=== PATIENT | female | born 1975 | race Native Hawaiian/Other Pacific Islander ===

== ENCOUNTER 2017-05-23 10:48 | Outpatient (CLI) | payer OTHER ==
[~2017-05-23 10:48] MED LIST: ACET-689 PO; ADDERALL30 MG PO; CLARITIN10 M1 PO; GLIM2TAB PO; SYNTHROID175 MCG PO
== END 2017-05-23 12:00 | disposition home or self-care (01) ==
LOC: LABW 10:48
DX: E11.9 Type 2 diabetes mellitus without complications (principal); E55.9 Vitamin D deficiency, unspecified
CPT/HCPCS: 36415; 82043; 82306; 82570; 83036

== ENCOUNTER 2017-05-24 10:39 | Outpatient (CLI) | payer OTHER | END 2017-05-24 19:07 | disposition home or self-care (01) | LOC: MAMMO 10:39 | DX: Z12.31 Encounter for screening mammogram for malignant neoplasm of breast (principal) | CPT/HCPCS: G0202-TC ==

== ENCOUNTER 2017-07-31 14:13 | Outpatient (CLI) | payer OTHER ==
[2017-07-31 14:34] LABS: PLATELET COUNT 217 K/uL (152-353)
[2017-07-31 14:52] LABS: POTASSIUM 3.7 mmol/L (3.6-5.2); SODIUM 132 mmol/L (136-145)
== END 2017-07-31 15:15 | disposition home or self-care (01) ==
LOC: LABW 14:13
PROVIDERS: Family Medicine
DX: R10.11 Right upper quadrant pain (principal)
CPT/HCPCS: 36415; 80053; 82150; 83690; 85027

== ENCOUNTER 2017-10-04 09:04 | Outpatient (CLI) | payer OTHER | END 2017-10-04 18:58 | disposition home or self-care (01) | LOC: CT 09:04 | DX: K86.2 Cyst of pancreas (principal) | CPT/HCPCS: 36415; 82565; 84520; Q9963 ==

== ENCOUNTER 2018-07-07 13:26 | Outpatient (CLI) | payer OTHER ==
[2018-07-07 13:42] LABS: PLATELET COUNT 237 K/uL (152-353)
[2018-07-07 13:47] LABS: POTASSIUM 3.9 mmol/L (3.6-5.2)
== END 2018-07-07 21:17 | disposition home or self-care (01) ==
LOC: LABW 13:26
PROVIDERS: Nurse Practitioner Family
DX: R10.12 Left upper quadrant pain (principal); R07.89 Other chest pain
CPT/HCPCS: 36415; 80053; 82150; 82550; 83690; 84484; 85027; 93005

== ENCOUNTER 2018-09-19 10:13 | Outpatient (CLI) | payer OTHER | END 2018-09-19 19:27 | disposition home or self-care (01) | LOC: MAMMO 10:13 | DX: Z12.31 Encounter for screening mammogram for malignant neoplasm of breast (principal) ==

== ENCOUNTER 2019-06-24 09:16 | Outpatient (CLI) | payer OTHER | END 2019-06-24 22:15 | disposition home or self-care (01) | LOC: LABW 09:16 | DX: E13.65 Other specified diabetes mellitus with hyperglycemia (principal); E03.8 Other specified hypothyroidism; K86.2 Cyst of pancreas | CPT/HCPCS: 36415; 82150; 83036; 83690; 84443 ==

== ENCOUNTER 2019-07-01 08:10 | Outpatient (CLI) | payer OTHER | END 2019-07-01 23:43 | disposition home or self-care (01) | LOC: CT 08:10 | DX: K86.2 Cyst of pancreas (principal) | CPT/HCPCS: 82565; 84520; Q9963 ==

== ENCOUNTER 2019-07-07 08:39 | Outpatient (CLI) | payer OTHER | END 2019-07-07 20:57 | disposition home or self-care (01) | LOC: MRI 08:39 | DX: K86.2 Cyst of pancreas (principal) | CPT/HCPCS: A9576 ==

== ENCOUNTER 2019-10-02 10:12 | Outpatient (CLI) | payer OTHER | END 2019-10-02 22:16 | disposition home or self-care (01) | LOC: MAMMO 10:12 | DX: Z12.31 Encounter for screening mammogram for malignant neoplasm of breast (principal) ==

== ENCOUNTER 2019-10-16 14:07 | Outpatient (CLI) | payer OTHER | END 2019-10-16 19:29 | disposition home or self-care (01) | LOC: LABW 14:07 | DX: E03.9 Hypothyroidism, unspecified (principal) | CPT/HCPCS: 36415; 84436; 84443; 84480 ==

== ENCOUNTER 2020-01-26 08:16 | Outpatient (CLI) | payer OTHER ==
[2020-01-26 08:45] LABS: PLATELET COUNT 218 K/uL (152-353)
== END 2020-01-26 19:34 | disposition home or self-care (01) ==
LOC: LABW 08:16
PROVIDERS: Family Medicine
DX: E03.8 Other specified hypothyroidism (principal); Z13.220 Encounter for screening for lipoid disorders; E55.9 Vitamin D deficiency, unspecified; E53.8 Deficiency of other specified B group vitamins; I10 Essential (primary) hypertension; E13.65 Other specified diabetes mellitus with hyperglycemia
CPT/HCPCS: 36415; 80053; 80061; 82306; 82607; 83036; 84439; 84443; 85027

== ENCOUNTER 2020-09-26 10:17 | Outpatient (CLI) | payer OTHER ==
[2020-09-26 11:05] LABS: PLATELET COUNT 201 K/uL (152-353)
[2020-09-26 11:16] LABS: POTASSIUM 3.3 mmol/L (3.6-5.2)
== END 2020-09-26 23:24 | disposition home or self-care (01) ==
LOC: LABW 10:17
PROVIDERS: Family Medicine
DX: Z00.01 Encounter for general adult medical examination with abnormal findings (principal); K86.3 Pseudocyst of pancreas
CPT/HCPCS: 36415; 80053; 82150; 83690; 84436; 84443; 84481; 85027; 93005

== ENCOUNTER 2020-09-27 14:39 | Outpatient (CLI) | payer OTHER | END 2020-09-27 23:38 | disposition home or self-care (01) | LOC: LAB 14:39 | DX: E13.65 Other specified diabetes mellitus with hyperglycemia (principal) | CPT/HCPCS: 83036 ==

== ENCOUNTER 2020-10-12 09:12 | Outpatient (CLI) | payer OTHER | END 2020-10-12 20:42 | disposition home or self-care (01) | LOC: MRI 09:12 | PROVIDERS: ATTEND Family Medicine | DX: Z00.01 Encounter for general adult medical examination with abnormal findings (principal); K86.3 Pseudocyst of pancreas; Z12.31 Encounter for screening mammogram for malignant neoplasm of breast | CPT/HCPCS: A9576 ==

== ENCOUNTER 2020-12-28 13:53 | Outpatient (CLI) | payer OTHER ==
[2020-12-28 14:27] LABS: PLATELET COUNT 244 K/uL (152-353)
[2020-12-28 14:38] LABS: POTASSIUM 3.8 mmol/L (3.6-5.2)
== END 2020-12-28 21:58 | disposition home or self-care (01) ==
LOC: LABW 13:53
PROVIDERS: ATTEND Nurse Practitioner Family
DX: I10 Essential (primary) hypertension (principal); E13.65 Other specified diabetes mellitus with hyperglycemia; E53.8 Deficiency of other specified B group vitamins; E55.9 Vitamin D deficiency, unspecified
CPT/HCPCS: 36415; 80053; 82306; 82607; 83036; 85027

== ENCOUNTER 2021-04-07 10:57 | Outpatient (CLI) | payer OTHER ==
[2021-04-07 11:15] LABS: PLATELET COUNT 221 K/uL (152-353)
[2021-04-07 11:30] LABS: POTASSIUM 4.3 mmol/L (3.6-5.2)
== END 2021-04-07 22:41 | disposition home or self-care (01) ==
LOC: LABW 10:57
PROVIDERS: ATTEND Nurse Practitioner Family
DX: I10 Essential (primary) hypertension (principal); E13.65 Other specified diabetes mellitus with hyperglycemia
CPT/HCPCS: 36415; 80053; 83036; 85027

== ENCOUNTER 2021-04-13 08:14 | Outpatient (CLI) | payer OTHER ==
[~2021-04-13] VITALS: Ht 167.6 cm; Wt 88.0 kg
== END 2021-04-13 21:42 | disposition home or self-care (01) ==
LOC: DIABINF 08:14
PROVIDERS: ATTEND Internal Medicine Endocrinology, Diabetes & Metabolism
DX: E11.65 Type 2 diabetes mellitus with hyperglycemia (principal); I10 Essential (primary) hypertension; E78.2 Mixed hyperlipidemia; E55.9 Vitamin D deficiency, unspecified; E03.8 Other specified hypothyroidism; E66.8 Other obesity; Z68.39 Body mass index [BMI] 39.0-39.9, adult
CPT/HCPCS: 82948; 96365; 96366; 96521; J1815; J1817

== ENCOUNTER 2021-04-14 08:16 | Outpatient (CLI) | payer OTHER ==
[~2021-04-14] VITALS: Ht 167.6 cm; Wt 88.0 kg
== END 2021-04-14 22:16 | disposition home or self-care (01) ==
LOC: DIABINF 08:16
PROVIDERS: ATTEND Internal Medicine Endocrinology, Diabetes & Metabolism
DX: E11.65 Type 2 diabetes mellitus with hyperglycemia (principal); I10 Essential (primary) hypertension; E78.2 Mixed hyperlipidemia; E55.9 Vitamin D deficiency, unspecified; E03.8 Other specified hypothyroidism; E66.8 Other obesity; Z68.39 Body mass index [BMI] 39.0-39.9, adult
CPT/HCPCS: 82948; 96365; 96366; 96521; J1815; J1817

== ENCOUNTER 2021-04-20 08:10 | Outpatient (CLI) | payer OTHER ==
[~2021-04-20] VITALS: Ht 167.6 cm; Wt 88.0 kg
== END 2021-04-20 22:02 | disposition home or self-care (01) ==
LOC: DIABINF 08:10
PROVIDERS: ATTEND Internal Medicine Endocrinology, Diabetes & Metabolism
DX: E11.65 Type 2 diabetes mellitus with hyperglycemia (principal); I10 Essential (primary) hypertension; E78.2 Mixed hyperlipidemia; E55.9 Vitamin D deficiency, unspecified; E03.8 Other specified hypothyroidism; E66.8 Other obesity; Z68.31 Body mass index [BMI] 31.0-31.9, adult; K86.3 Pseudocyst of pancreas
CPT/HCPCS: 82948; 96365; 96366; 96521; J1815; J1817

== ENCOUNTER 2021-04-21 08:22 | Outpatient (CLI) | payer OTHER ==
[~2021-04-21] VITALS: Ht 167.6 cm; Wt 88.0 kg
== END 2021-04-21 22:44 | disposition home or self-care (01) ==
LOC: DIABINF 08:22
PROVIDERS: ATTEND Internal Medicine Endocrinology, Diabetes & Metabolism
DX: E11.65 Type 2 diabetes mellitus with hyperglycemia (principal); I10 Essential (primary) hypertension; E78.2 Mixed hyperlipidemia; E55.9 Vitamin D deficiency, unspecified; E03.8 Other specified hypothyroidism; E66.8 Other obesity; Z68.31 Body mass index [BMI] 31.0-31.9, adult; K86.3 Pseudocyst of pancreas
CPT/HCPCS: 82948; 96365; 96366; 96521; J1815; J1817

== ENCOUNTER 2021-04-27 08:11 | Outpatient (CLI) | payer OTHER ==
[~2021-04-27] VITALS: Ht 167.6 cm; Wt 88.0 kg
== END 2021-04-27 22:43 | disposition home or self-care (01) ==
LOC: DIABINF 08:11
PROVIDERS: ATTEND Internal Medicine Endocrinology, Diabetes & Metabolism
DX: E11.65 Type 2 diabetes mellitus with hyperglycemia (principal); I10 Essential (primary) hypertension; E78.2 Mixed hyperlipidemia; E55.9 Vitamin D deficiency, unspecified; E03.8 Other specified hypothyroidism; E66.8 Other obesity; Z68.31 Body mass index [BMI] 31.0-31.9, adult; K86.3 Pseudocyst of pancreas
CPT/HCPCS: 82948; 96365; 96366; 96521; J1815; J1817

== ENCOUNTER 2021-04-28 08:20 | Outpatient (CLI) | payer OTHER ==
[~2021-04-28] VITALS: Ht 167.6 cm; Wt 88.0 kg
== END 2021-04-28 19:54 | disposition home or self-care (01) ==
LOC: DIABINF 08:20
PROVIDERS: ATTEND Internal Medicine Endocrinology, Diabetes & Metabolism
DX: E11.65 Type 2 diabetes mellitus with hyperglycemia (principal); I10 Essential (primary) hypertension; E78.2 Mixed hyperlipidemia; E55.9 Vitamin D deficiency, unspecified; E03.8 Other specified hypothyroidism; E66.8 Other obesity; Z68.31 Body mass index [BMI] 31.0-31.9, adult; K86.3 Pseudocyst of pancreas
CPT/HCPCS: 82948; 96365; 96366; 96521; J1815; J1817

== ENCOUNTER 2021-05-04 08:11 | Outpatient (CLI) | payer OTHER ==
[~2021-05-04] VITALS: Ht 167.6 cm; Wt 88.0 kg
== END 2021-05-04 22:40 | disposition home or self-care (01) ==
LOC: DIABINF 08:11
PROVIDERS: ATTEND Internal Medicine Endocrinology, Diabetes & Metabolism
DX: E11.65 Type 2 diabetes mellitus with hyperglycemia (principal); I10 Essential (primary) hypertension; E78.2 Mixed hyperlipidemia; E55.9 Vitamin D deficiency, unspecified; E03.8 Other specified hypothyroidism; E66.8 Other obesity; Z68.31 Body mass index [BMI] 31.0-31.9, adult; K86.3 Pseudocyst of pancreas; Z87.898 Personal history of other specified conditions
CPT/HCPCS: 82948; 96365; 96366; 96521; J1815; J1817

== ENCOUNTER 2021-05-12 08:26 | Outpatient (CLI) | payer OTHER ==
[~2021-05-12] VITALS: Ht 167.6 cm; Wt 88.0 kg
== END 2021-05-12 11:30 | disposition home or self-care (01) ==
LOC: DIABINF 08:26
PROVIDERS: ATTEND Internal Medicine Endocrinology, Diabetes & Metabolism
DX: E11.65 Type 2 diabetes mellitus with hyperglycemia (principal); E55.9 Vitamin D deficiency, unspecified; E78.2 Mixed hyperlipidemia; I10 Essential (primary) hypertension; E03.8 Other specified hypothyroidism; E66.8 Other obesity; Z68.31 Body mass index [BMI] 31.0-31.9, adult; K86.3 Pseudocyst of pancreas
CPT/HCPCS: 82948; 96365; 96366; 96521; J1815; J1817

== ENCOUNTER 2021-05-19 08:21 | Outpatient (CLI) | payer OTHER ==
[~2021-05-19] VITALS: Ht 167.6 cm; Wt 88.0 kg
== END 2021-05-19 11:30 | disposition home or self-care (01) ==
LOC: DIABINF 08:21
PROVIDERS: ATTEND Internal Medicine Endocrinology, Diabetes & Metabolism
DX: E11.65 Type 2 diabetes mellitus with hyperglycemia (principal); K86.3 Pseudocyst of pancreas; I10 Essential (primary) hypertension; E78.00 Pure hypercholesterolemia, unspecified; E03.8 Other specified hypothyroidism; K21.9 Gastro-esophageal reflux disease without esophagitis; E55.9 Vitamin D deficiency, unspecified; E66.8 Other obesity; Z68.31 Body mass index [BMI] 31.0-31.9, adult
CPT/HCPCS: 82948; 96365; 96366; 96521; J1815; J1817

== ENCOUNTER 2021-05-26 08:27 | Outpatient (CLI) | payer OTHER ==
[~2021-05-26] VITALS: Ht 167.6 cm; Wt 88.0 kg
== END 2021-05-26 23:00 | disposition home or self-care (01) ==
LOC: DIABINF 08:27
PROVIDERS: ATTEND Internal Medicine Endocrinology, Diabetes & Metabolism
DX: E11.65 Type 2 diabetes mellitus with hyperglycemia (principal); I10 Essential (primary) hypertension; E78.2 Mixed hyperlipidemia; E55.9 Vitamin D deficiency, unspecified; E03.8 Other specified hypothyroidism; E66.8 Other obesity; Z68.31 Body mass index [BMI] 31.0-31.9, adult; K86.3 Pseudocyst of pancreas
CPT/HCPCS: 82948; 96365; 96366; 96521; J1815; J1817

== ENCOUNTER 2021-06-02 08:26 | Outpatient (CLI) | payer OTHER | END 2021-06-02 21:51 | disposition home or self-care (01) | LOC: DIABINF 08:26 | PROVIDERS: ATTEND Internal Medicine Endocrinology, Diabetes & Metabolism | DX: E11.65 Type 2 diabetes mellitus with hyperglycemia (principal); I10 Essential (primary) hypertension; E78.2 Mixed hyperlipidemia; E55.9 Vitamin D deficiency, unspecified; E03.8 Other specified hypothyroidism; E66.8 Other obesity; Z68.31 Body mass index [BMI] 31.0-31.9, adult; K86.3 Pseudocyst of pancreas | CPT/HCPCS: 82948; 96365; 96366; 96521; J1817 ==

== ENCOUNTER 2021-06-09 08:24 | Outpatient (CLI) | payer OTHER ==
[~2021-06-09] VITALS: Ht 167.6 cm; Wt 88.0 kg
== END 2021-06-09 22:50 | disposition home or self-care (01) ==
LOC: DIABINF 08:24
PROVIDERS: ATTEND Internal Medicine Endocrinology, Diabetes & Metabolism
DX: E11.65 Type 2 diabetes mellitus with hyperglycemia (principal); I10 Essential (primary) hypertension; E78.2 Mixed hyperlipidemia; E55.9 Vitamin D deficiency, unspecified; E03.8 Other specified hypothyroidism; E66.8 Other obesity; Z68.31 Body mass index [BMI] 31.0-31.9, adult; K86.3 Pseudocyst of pancreas
CPT/HCPCS: 82948; 96365; 96366; 96521; J1815; J1817

== ENCOUNTER 2021-06-16 08:21 | Outpatient (CLI) | payer OTHER ==
[~2021-06-16] VITALS: Ht 167.6 cm; Wt 88.0 kg
== END 2021-06-16 19:06 | disposition home or self-care (01) ==
LOC: DIABINF 08:21
PROVIDERS: ATTEND Internal Medicine Endocrinology, Diabetes & Metabolism
DX: E11.65 Type 2 diabetes mellitus with hyperglycemia (principal); I10 Essential (primary) hypertension; E78.2 Mixed hyperlipidemia; E55.9 Vitamin D deficiency, unspecified; E03.8 Other specified hypothyroidism; E66.8 Other obesity; Z68.31 Body mass index [BMI] 31.0-31.9, adult; K86.3 Pseudocyst of pancreas; Z87.898 Personal history of other specified conditions
CPT/HCPCS: 82948; 96365; 96366; 96521; J1815; J1817

== ENCOUNTER 2021-06-30 08:19 | Outpatient (CLI) | payer OTHER ==
[~2021-06-30] VITALS: Ht 167.6 cm; Wt 88.0 kg
== END 2021-06-30 19:56 | disposition home or self-care (01) ==
LOC: DIABINF 08:19
PROVIDERS: ATTEND Internal Medicine Endocrinology, Diabetes & Metabolism
DX: E11.65 Type 2 diabetes mellitus with hyperglycemia (principal); K86.3 Pseudocyst of pancreas; I10 Essential (primary) hypertension; E78.00 Pure hypercholesterolemia, unspecified; E03.8 Other specified hypothyroidism; K21.9 Gastro-esophageal reflux disease without esophagitis; E55.9 Vitamin D deficiency, unspecified; E66.8 Other obesity; Z68.31 Body mass index [BMI] 31.0-31.9, adult
CPT/HCPCS: 82948; 96365; 96366; 96521; J1815; J1817

== ENCOUNTER 2021-07-07 08:11 | Outpatient (CLI) | payer OTHER ==
[~2021-07-07] VITALS: Ht 167.6 cm; Wt 88.0 kg
== END 2021-07-07 23:04 | disposition home or self-care (01) ==
LOC: DIABINF 08:11
PROVIDERS: ATTEND Internal Medicine Endocrinology, Diabetes & Metabolism
DX: E11.65 Type 2 diabetes mellitus with hyperglycemia (principal); K86.3 Pseudocyst of pancreas; I10 Essential (primary) hypertension; E78.00 Pure hypercholesterolemia, unspecified; E03.8 Other specified hypothyroidism; K21.9 Gastro-esophageal reflux disease without esophagitis; E55.9 Vitamin D deficiency, unspecified; E66.8 Other obesity; Z68.31 Body mass index [BMI] 31.0-31.9, adult
CPT/HCPCS: 82948; 96365; 96366; 96521; J1815; J1817

== ENCOUNTER 2021-07-10 17:21 | Outpatient (CLI) | payer OTHER ==
[2021-07-10 19:30] LABS: POTASSIUM 4.4 mmol/L (3.6-5.2)
== END 2021-07-10 19:17 | disposition home or self-care (01) ==
LOC: LAB 17:21
PROVIDERS: ATTEND Internal Medicine Endocrinology, Diabetes & Metabolism
DX: E11.65 Type 2 diabetes mellitus with hyperglycemia (principal); E78.2 Mixed hyperlipidemia; R53.81 Other malaise; R53.83 Other fatigue
CPT/HCPCS: 80053; 80061; 82306; 83036; 83525; 84681

== ENCOUNTER 2021-07-14 07:58 | Outpatient (CLI) | payer OTHER ==
[~2021-07-14] VITALS: Ht 167.6 cm; Wt 88.0 kg
== END 2021-07-14 19:03 | disposition home or self-care (01) ==
LOC: DIABINF 07:58
PROVIDERS: ATTEND Nurse Practitioner
DX: E11.65 Type 2 diabetes mellitus with hyperglycemia (principal); K86.3 Pseudocyst of pancreas; I10 Essential (primary) hypertension; E78.00 Pure hypercholesterolemia, unspecified; E03.8 Other specified hypothyroidism; K21.9 Gastro-esophageal reflux disease without esophagitis; E55.9 Vitamin D deficiency, unspecified; E66.8 Other obesity; Z68.31 Body mass index [BMI] 31.0-31.9, adult
CPT/HCPCS: 82948; 96365; 96366; 96521; J1815; J1817

== ENCOUNTER 2021-07-28 08:06 | Outpatient (CLI) | payer OTHER ==
[~2021-07-28] VITALS: Ht 167.6 cm; Wt 88.0 kg
== END 2021-07-28 18:58 | disposition home or self-care (01) ==
LOC: DIABINF 08:06
PROVIDERS: ATTEND Nurse Practitioner
DX: E11.65 Type 2 diabetes mellitus with hyperglycemia (principal); K86.3 Pseudocyst of pancreas; I10 Essential (primary) hypertension; E78.00 Pure hypercholesterolemia, unspecified; E03.8 Other specified hypothyroidism; K21.9 Gastro-esophageal reflux disease without esophagitis; E55.9 Vitamin D deficiency, unspecified; E66.8 Other obesity; Z68.31 Body mass index [BMI] 31.0-31.9, adult
CPT/HCPCS: 82948; 96365; 96366; 96521; J1815; J1817

== ENCOUNTER 2021-10-16 09:51 | Outpatient (CLI) | payer OTHER | END 2021-10-16 19:39 | disposition home or self-care (01) | LOC: MAMMO 09:51 | PROVIDERS: ATTEND Family Medicine | DX: Z12.31 Encounter for screening mammogram for malignant neoplasm of breast (principal) ==

== ENCOUNTER 2021-11-08 09:52 | Outpatient (CLI) | payer OTHER ==
[2021-11-08 10:50] LABS: PLATELET COUNT 229 K/uL (152-353)
[2021-11-08 11:01] LABS: POTASSIUM 4.5 mmol/L (3.6-5.2)
== END 2021-11-08 20:18 | disposition home or self-care (01) ==
LOC: LABW 09:52
PROVIDERS: ATTEND Nurse Practitioner Family
DX: I10 Essential (primary) hypertension (principal); E03.8 Other specified hypothyroidism; E13.65 Other specified diabetes mellitus with hyperglycemia; E55.9 Vitamin D deficiency, unspecified; E53.8 Deficiency of other specified B group vitamins
CPT/HCPCS: 36415; 80053; 82306; 82607; 83036; 84443; 85027

== ENCOUNTER 2021-12-15 13:34 | Outpatient (CLI) | payer OTHER | END 2021-12-15 20:37 | disposition home or self-care (01) | LOC: MRI 13:34 | PROVIDERS: ATTEND Family Medicine | DX: M54.14 Radiculopathy, thoracic region (principal); K86.2 Cyst of pancreas | CPT/HCPCS: A9576 ==

== ENCOUNTER 2021-12-19 09:42 | Outpatient (CLI) | payer OTHER | END 2021-12-19 18:58 | disposition home or self-care (01) | LOC: RAD 09:42 | PROVIDERS: ATTEND Nurse Practitioner Primary Care | DX: M54.6 Pain in thoracic spine (principal) ==

== ENCOUNTER 2022-01-22 11:31 | Outpatient (CLI) | payer OTHER | END 2022-01-22 18:52 | disposition home or self-care (01) | LOC: LABW 11:31 | PROVIDERS: ATTEND Internal Medicine Cardiovascular Disease | DX: E03.9 Hypothyroidism, unspecified (principal); J01.90 Acute sinusitis, unspecified | CPT/HCPCS: 36415; 84439; 84443; 87502 ==

== ENCOUNTER 2022-06-27 09:49 | Outpatient (CLI) | payer OTHER ==
[2022-06-27 10:16] LABS: PLATELET COUNT 221 K/uL (152-353)
[2022-06-27 10:41] LABS: POTASSIUM 4.1 mmol/L (3.6-5.2)
== END 2022-06-27 18:53 | disposition home or self-care (01) ==
LOC: LABW 09:49
PROVIDERS: ATTEND Family Medicine
DX: I10 Essential (primary) hypertension (principal); E13.65 Other specified diabetes mellitus with hyperglycemia; E03.8 Other specified hypothyroidism; E78.2 Mixed hyperlipidemia; R68.82 Decreased libido; E53.8 Deficiency of other specified B group vitamins; E55.9 Vitamin D deficiency, unspecified
CPT/HCPCS: 36415; 80053; 80061; 82306; 82607; 82670; 83001; 83002; 83036; 84403; 84436; 84443; 84481; 85027

== ENCOUNTER 2022-07-20 18:03 | Outpatient (CLI) | payer OTHER | END 2022-07-20 21:07 | disposition home or self-care (01) | LOC: RAD 18:03 | PROVIDERS: ATTEND Nurse Practitioner Family | DX: M25.512 Pain in left shoulder (principal) ==

== ENCOUNTER 2022-08-09 12:21 | Outpatient (CLI) | payer OTHER ==
[~2022-08-09] VITALS: Ht 167.6 cm; Wt 82.6 kg
[2022-08-09 13:00] VITALS: BP 126/72; TEMP 98.1
[2022-08-09 13:47] VITALS: BP 97/48; TEMP 98
[2022-08-09 14:02] VITALS: BP 91/48; TEMP 97.9
[2022-08-09 14:21] VITALS: BP 103/51
[2022-08-09 14:34] VITALS: BP 105/60; TEMP 98.2
== END 2022-08-09 20:56 | disposition home or self-care (01) ==
LOC: INF 12:21
PROVIDERS: ATTEND Family Medicine
DX: Z23 Encounter for immunization (principal); U07.1 COVID-19
CPT/HCPCS: Q0222

== ENCOUNTER 2022-09-03 10:44 | Outpatient (CLI) | payer OTHER | END 2022-09-03 19:01 | disposition home or self-care (01) | LOC: MRI 10:44 | PROVIDERS: ATTEND Nurse Practitioner Family | DX: M25.512 Pain in left shoulder (principal) ==

== ENCOUNTER 2022-11-16 13:46 | Outpatient (CLI) | payer OTHER | END 2022-11-16 22:33 | disposition home or self-care (01) | LOC: US 13:46 | PROVIDERS: ATTEND Nurse Practitioner Family | DX: E03.8 Other specified hypothyroidism (principal) ==

== ENCOUNTER 2022-11-21 09:55 | Outpatient (CLI) | payer OTHER ==
[2022-11-21 10:09] LABS: PLATELET COUNT 221 K/uL (152-353)
[2022-11-21 10:28] LABS: POTASSIUM 4.2 mmol/L (3.6-5.2)
== END 2022-11-21 19:00 | disposition home or self-care (01) ==
LOC: LABW 09:55
PROVIDERS: ATTEND Nurse Practitioner Family
DX: I10 Essential (primary) hypertension (principal); E03.8 Other specified hypothyroidism; E13.65 Other specified diabetes mellitus with hyperglycemia
CPT/HCPCS: 36415; 80053; 83036; 84443; 85027

== ENCOUNTER 2022-12-03 13:00 | Outpatient (CLI) | payer OTHER | END 2022-12-03 21:38 | disposition home or self-care (01) | LOC: US 13:00 | PROVIDERS: ATTEND Nurse Practitioner Family | DX: I88.8 Other nonspecific lymphadenitis (principal) ==

== ENCOUNTER 2023-02-05 11:16 | Outpatient (CLI) | payer OTHER ==
[2023-02-05 11:59] LABS: POTASSIUM 3.7 mmol/L (3.6-5.2)
== END 2023-02-05 19:27 | disposition home or self-care (01) ==
LOC: LABW 11:16
PROVIDERS: ATTEND Family Medicine
DX: E03.8 Other specified hypothyroidism (principal); E13.65 Other specified diabetes mellitus with hyperglycemia
CPT/HCPCS: 36415; 80053; 83036; 84443

== ENCOUNTER 2023-04-08 13:46 | Outpatient (CLI) | payer OTHER | END 2023-04-08 20:44 | disposition home or self-care (01) | LOC: MRI 13:46 | PROVIDERS: ATTEND Nurse Practitioner Family | DX: K86.2 Cyst of pancreas (principal) | CPT/HCPCS: 36415; 82565; 84520; A9576 ==

== ENCOUNTER 2023-05-21 12:19 | Outpatient (CLI) | payer OTHER ==
[2023-05-21 12:37] LABS: PLATELET COUNT 231 K/uL (152-353)
[2023-05-21 12:57] LABS: POTASSIUM 4.1 mmol/L (3.6-5.2)
== END 2023-05-21 20:35 | disposition home or self-care (01) ==
LOC: LABW 12:19
PROVIDERS: ATTEND Nurse Practitioner Family
DX: I47.1 Supraventricular tachycardia (principal)
CPT/HCPCS: 36415; 80053; 84439; 84443; 85027

== ENCOUNTER 2023-06-27 10:10 | Outpatient (CLI) | payer OTHER | END 2023-06-27 21:47 | disposition home or self-care (01) | LOC: RESP 10:10 | PROVIDERS: ATTEND Nurse Practitioner Family | DX: I10 Essential (primary) hypertension (principal) ==

== ENCOUNTER 2023-07-25 08:10 | Outpatient (CLI) | payer OTHER | END 2023-07-25 20:38 | disposition home or self-care (01) | LOC: RESP 08:10 | PROVIDERS: ATTEND Family Medicine | DX: I10 Essential (primary) hypertension (principal) ==